=== PATIENT | male | born 1955 | race Caucasian/White ===

== ENCOUNTER 2024-12-22 11:54 | Emergency (ER) | payer OTHER, MEDICAID ==
[~2024-12-22] VITALS: Ht 185.4 cm; Wt 124.7 kg
[2024-12-22 12:29] VITALS: BP 151/80; TEMP 98.1; O2SAT 95
== END 2024-12-22 12:29 | disposition home or self-care (01) ==
LOC: ER 12:00
DX: I10 Essential (primary) hypertension (principal); E11.9 Type 2 diabetes mellitus without complications; R42 Dizziness and giddiness; Z88.0 Allergy status to penicillin